=== PATIENT | male | born 1980 | race Caucasian/White ===

== ENCOUNTER 2020-12-01 16:48 | Emergency (ER) | payer OTHER ==
[~2020-12-01] VITALS: Ht 172.7 cm; Wt 72.7 kg
[2020-12-01 16:52] VITALS: BP 130/82
--- NOTE | 2020-12-01 17:24 | PHYS DOC ---
Past History Past Medical History: No Pertinent History Past Surgical History: No Surgical History Alcohol Use: None Adult General Chief Complaint Chief Complaint: LACERATION/AVULSION [facility] HPI Patient is a 40-year-old male who presents to the emergency room with a laceration to his right calf. Patient states that he was running and something kicked up and cut his leg. He denies any other injuries. He has been able to walk without difficulty. He denies any kind of weakness or difficulty moving his ankle or feet. Last tetanus shot was greater than 6 years ago. Review of Systems Review of Systems Complete ROS is negative unless otherwise documented in HPI Current Medications Current Medications Current Medications Medications (Trade) Dose Ordered Sig/Brian Start Time Stop Time Status Last Admin Dose Admin Diphtheria/ Pertussis/Tetanus Vacc (ADACEL TDap SYRINGE) 0.5 ml ONCE ONCE 12/01/20 17:15 12/01/20 17:16 UNV Allergies Allergies Allergies Coded Allergies Type Severity Reaction Last Updated Verified No Known Drug Allergies 12/01/20 No Physical Exam Physical Exam General: Awake, alert, NAD. Well Nourished, well hydrated. Cooperative HEENT: Atraumatic, EOMI, PERRL, airway patent, moist oral mucosa Neck: Supple, trachea midline Respiratory: CTA bilaterally, normal effort, no wheezing/crackles CV: RRR, no murmur, cap refill <2 GI: Soft, nondistended, nontender, no masses MSK: No obvious deformities Skin: Warm, dry, 3 cm laceration to right posterior calf with surrounding abrasion Neuro: A&O x3, speech NL, sensory and motor grossly intact, no focal deficits Psych: Normal affect, normal mood, not suicidal or homicidal Current Patient Data Vital Signs Vital Signs Date Time Temp Pulse Resp B/P (MAP) Pulse Ox O2 Delivery O2 Flow Rate FiO2 12/01/20 16:52 97.8 65 16 130/82 (98) 100 Room Air EKG EKG [] Radiology/Procedures Radiology/Procedures [] Heart Score C/O Chest Pain: N/A Risk Factors: Risk Factors: DM, Current or recent (<one month) smoker, HTN, HLP, family history of CAD, obesity. Risk Scores: Risk Factors: DM, Current or recent (<one month) smoker, HTN, HLP, family history of CAD, obesity. Course & Med Decision Making Course & Med Decision Making Pertinent Labs and Imaging studies reviewed. (See chart for details) Patient is a 40-year-old male presents to the emergency room with a right calf laceration. Tetanus was given. 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 This will likely keep the wound clean. It was cleaned extensively to clean anything out prior to being closed. Patient was then walked around and moved his cath in multiple directions to ensure that the glue was going to stay. Wound did not reopen. Patient's test results and vitals while in the ED were fully reviewed and discussed with the patient. Patient is stable and at this time does not need admission to the hospital. We have discussed strict return precautions and the importance of following up with their Primary Care Physician. Patient stated understanding and was given an opportunity to ask any questions. Patient is in agreement with plan. Dragon Disclaimer Dragon Disclaimer This electronic medical record was generated, in whole or in part, using a voice recognition dictation system. Laceration/Wound Repair Laceration/Wound Repair : Wound Location: lower extremity Wound's Depth, Shape: superficial, linear Wound Length (cm): 3 Wound Explored: clean Irrigated w/ Saline (ccs): 200 Wound Repaired With: Dermabond Departure Departure: Impression: Primary Impression: Laceration of calf without complication Disposition: 01 HOME / SELF CARE / HOMELESS Condition: STABLE Referrals: PCP,LUNA (PCP) Patient Instructions: Laceration Care, Adult EARL JAQUEZ MD Dec 01, 2020 17:24
[2020-12-01] MEDS ORDERED: DIPH,PERTUSS(ACELL),TET VAC/PF 0.5 ML SYRINGE. VAX IM ONE (17:30)
== END 2020-12-01 17:32 | disposition home or self-care (01) ==
LOC: ER 16:48
DX: S81.811A Laceration without foreign body, right lower leg, initial encounter (principal); W26.8XXA Contact with other sharp object(s), not elsewhere classified, initial encounter; Y93.89 Activity, other specified; Y92.89 Other specified places as the place of occurrence of the external cause; Y99.8 Other external cause status
CPT/HCPCS: 12002; 90471; 90715; 99283